=== PATIENT | male | born 1985 | race Caucasian/White ===

== ENCOUNTER 2019-01-04 15:44 | Emergency (ER) | payer OTHER ==
[~2019-01-04] VITALS: Ht 165.1 cm; Wt 93.0 kg
[2019-01-04 15:49] VITALS: PULSE 108; Ht 165.1 cm; Wt 93.0 kg
[2019-01-04] MEDS ORDERED: SOD CHLORIDE 0.9% 1,000 ML IV STA (16:10)
[2019-01-04 16:30] VITALS: BP 131/85; RESP 22
[2019-01-04] MEDS ORDERED: CHLORDIAZEPOXIDE 25 MG CAP PO ONE (16:30)
[2019-01-04] MEDS ORDERED: THIAMINE 100 MG TAB PO ONE (16:30)
[2019-01-04] MEDS ORDERED: LORAZEPAM 2 MG INJ IV ONE (16:30)
[2019-01-04] MEDS ORDERED: FOLIC ACID 1 MG TAB PO ONE (16:30)
--- NOTE | 2019-01-04 16:38 | ERD ---
ER Documentation Chief Complaint Chief Complaint alcohol withdrawal - psychological evaluation SI HPI 33-year-old gentleman history of alcohol abuse who states that he is presenting with early withdrawal syndrome. He states that his last drink was 2 to 4 hours ago. He is feeling slightly jittery. He is asking for placement to a detox center. Patient denies any hematemesis, abdominal pain, back pain or melena. He denies any suicidal or homicidal ideation. At triage it was noted that he was possibly suicidal but based on further evaluation the patient states that he is having depressed mood but denies any suicidal thoughts. He does not feel that he needs to talk to a psychiatrist and does not feel that he needs to be hospitalized in a psychiatric facility. He denies active suicidal ideation, homicidal ideation or plan. ROS All systems reviewed and are negative except as per history of present illness. PMhx/Soc Medical and Surgical Hx: pt denies Medical Hx FmHx Family History: No diabetes Physical Exam Vitals Vital Signs Date Temp Pulse Resp B/P (MAP) Pulse Ox O2 O2 Flow FiO2 Time Delivery Rate 01/04/19 98.5 108 24 136/83 95 15:49 (100) Physical Exam General: Well developed, well nourished, no acute distress Head: Normocephalic, atraumatic. Eyes: Pupils equally reactive, EOM intact ENT: Moist mucous membranes Neck: Supple, no lymphadenopathy Respiratory: Lungs clear bilaterally, no distress Cardiovascular: RRR, no murmurs, rubs, or gallops Abdominal: Soft, non-tender, non-distended, no peritoneal signs : Deferred MSK: No edema, no unilateral swelling, 5/5 strength Neurologic: Alert and oriented, moving all extremities, normal speech, no focal weakness, no cerebellar signs Skin: No rash Psych: Depressed mood, no suicidal ideation or homicidal ideation Results 24 hrs Current Medications Medications Dose Sig/Michi Start Time Status Last (Trade) Ordered Route PRN Stop Time Admin Dose Reason Admin Sodium 1,000 ml @ Q1H STAT 01/04/19 Chloride 1,000 mls/hr IV 16:10 01/04/19 17:09 Lorazepam 1 mg ONCE ONCE 01/04/19 DC (Ativan) IV 16:30 01/04/19 16:31 50 mg ONCE ONCE 01/04/19 DC Chlordiazepox PO 16:30 cristy 01/04/19 16:31 (Librium) Thiamine 100 mg ONCE ONCE 01/04/19 DC HCl PO 16:30 (Vitamin B1) 01/04/19 16:31 Folic Acid 1 mg ONCE ONCE 01/04/19 DC (Folic Acid) PO 16:30 01/04/19 16:31 Procedures/MDM MEDICAL DECISION MAKING: Clinical exam is not consistent with significant alcohol withdrawal syndrome. The patient's last alcohol intake was only several hours ago. He does not appear to be significantly intoxicated. The patient has no evidence of complications such as GI bleed. The patient is not suicidal. He was asked multiple times by myself and the director of social services. He does not have any suicidal thoughts and no active plan. He does not meet criteria for psychiatric evaluation and placement at this time. high worker has met with the patient and provide him with detox resources. The patient is able to arrange for these on his own. Patient does not exhibit any significant alcohol withdrawal syndrome that would warrant hospitalization repeat dosing of benzodiazepine. ER COURSE: * Patient given IV fluids, Ativan, Librium. Thiamine and folic acid. * The patient does not meet criteria for hospitalization. He has no evidence of emergent medical condition. Medical screening examination reveals no acute process. The patient can be safely discharged. * The patient has a sponsor. He appears to be motivated to stop drinking. He is a decent candidate for Librium. He has used this in the past. He is advised of the risks and discontinuation if he continues to drink. He states understanding. CONSULTATION: [None] DISPOSITION PLAN: The patient does not have an identifiable emergent medical condition that warrants inpatient hospitalization at this time. The patient is deemed safe for discharge with outpatient follow-up. We discussed follow up with the patient's primary care doctor within 24 to 48 hours as needed. We also discussed return to the emergency room for worsening symptoms or worsening condition. Outpatient referral: [facility] Discharge Medications: Librium taper Departure Diagnosis: Primary Impression: Alcohol withdrawal Complication of substance-induced condition: uncomplicated Qualified Codes: F10.230 - Alcohol dependence with withdrawal, uncomplicated Condition: Stable MADAI KEARNEY MD January 04, 2019 16:38
[2019-01-04] MEDS ORDERED: CHLO25CA9 PO (16:41)
== END 2019-01-04 17:58 | disposition home or self-care (01) ==
LOC: E/R 15:44
DX: F10.230 Alcohol dependence with withdrawal, uncomplicated (principal)
CPT/HCPCS: 96374; J2060; J7030; Z7502; Z7610